=== PATIENT | female | born 1950 | race Caucasian/White ===

== ENCOUNTER → 2017-01-10 | Outpatient (CLI) | payer MEDICARE | END | disposition home or self-care (01) | LOC: PCVCCLINIC 15:30 | PROVIDERS: ATTEND Nuclear Medicine Nuclear Cardiology | DX: K55.1 Chronic vascular disorders of intestine (principal); I73.9 Peripheral vascular disease, unspecified; I10 Essential (primary) hypertension; E78.00 Pure hypercholesterolemia, unspecified; J44.9 Chronic obstructive pulmonary disease, unspecified | CPT/HCPCS: G0463 ==

== ENCOUNTER → 2017-02-11 | Outpatient (CLI) | payer MEDICARE | END | disposition home or self-care (01) | LOC: PCVCCLINIC 11:09 | PROVIDERS: ATTEND Nuclear Medicine Nuclear Cardiology | DX: Z01.812 Encounter for preprocedural laboratory examination (principal) | CPT/HCPCS: 36415 ==

== ENCOUNTER → 2017-02-15 | Outpatient (CLI) | payer MEDICARE, OTHER ==
[~2017-02-15] MED LIST: ASPIRIN 325 MG TABLET ONE; CLOPIDOGREL BISULFATE 75 MG TABLET ONE; DIAZEPAM 10 MG TABLET. ONE; FENTANYL PF 100 MCG/2 ML VIAL. ONE; HEPARIN SODIUM 5,000 UNIT/ML VIAL. ONE; IODIXANOL 270 MG/ML 100 ML VIAL. ONE; IOHEXOL 300 MG/ML 100ML VIAL. ONE; IV NORMAL SALINE 1000ML BAG 1,000 ML ONE; IV NORMAL SALINE 500ML BAG 0 ML ONE; MIDAZOLAM HCL/PF 2 MG/2 ML VIAL. ONE; VANCOMYCIN 1GM IVPB FOR OMNI 250 ML ONE; hydrALAZINE 20 MG/ML VIAL. ONE
== END | disposition home or self-care (01) ==
LOC: PCVCINTER 07:14
PROVIDERS: ATTEND Nuclear Medicine Nuclear Cardiology
DX: K55.1 Chronic vascular disorders of intestine (principal); I70.0 Atherosclerosis of aorta; I70.201 Unspecified atherosclerosis of native arteries of extremities, right leg; I70.1 Atherosclerosis of renal artery
CPT/HCPCS: 36245; 36246; 36252; 37236; 75716; 75726; 76937; C1725; C1751; C1760; C1769; C1876; C1887; C1894; J1644; J2250; J3010; J3370; J7030; Q9967; J0360; J7040

== ENCOUNTER → 2017-05-20 | Outpatient (CLI) | payer MEDICARE, OTHER ==
--- NOTE | 2017-05-21 18:35 | PCVCIMAG ---
APPROVED REPORT Exam: Nuclear Stress Test Indication: PVD, Multiple cardiac risks factors, SOB. Patient Location: Out-Patient Stress Nurse: Anel Levine RN, JESUS MANUEL Mccann Tech:Ugo SantosJAIR Ht: 5 ft 5 in Wt: 155 lbs BSA: 1.77 m2 HR: 75 bpm BP: 124/62 mmHg BMI: 25.7 Rhythm: SR Medical History Medical History: Hyperlipidemia, HTN, PVD, Former Smoker Medications: Diltiazem, ProAir, Simvastatin, Lisinopril, ASA, Allergies: [place] Pretest Chest Pain Characteristics: No chest pain Exercise History: Sedentary Physical Disabilities: Knees Meds Held (24 hrs): Butalbital NM EXAM: Myocardial Perfusion REST/STRESS Imaging Protocol: Rest Tc-99m/Stress Tc-99m 1 day Resting Data Rest SPECT myocardial perfusion imaging was performed in supine position 45 minutes following the intravenous injection of 11.4 mCi of Tc-99m Sestamibi. Time of rest injection: 09 Date: 05/20/2017 Pharmacologic Stress Pharmacologic stress test was performed by injecting Regadenoson 0.4 mg IV push followed by the intravenous injection of 33.8 mCi of Tc-99m Sestamibi. Time of stress injection: 1025 Date: 05/20/2017 The images were gated to evaluate regional wall motion and calculate left ventricular ejection fraction. Study Quality Study: Good Study Data Post stress, the left ventricular ejection was 72%.. SSS: 2 SRS: 3 SDS: 1 TID = 0.94. Perfusion No evidence of stress induced ischemia or prior myocardial infarction. Wall Motion Normal left ventricular size and function with no regional wall motion abnormalities. Nuclear Conclusion No evidence of stress induced ischemia or prior myocardial infarction. Normal left ventricular size and function with no regional wall motion abnormalities. Post stress, the left ventricular ejection was 72%.. No prior study available for comparison. Interpreted by: Bran Pena MD Electronically Approved: 05/20/2017 19:00:22 Stress Test Details Stress Test: Pharmacologic stress testing performed using 0.4 mg of regadenoson per 5 mL given IV over 10 seconds. HR Resting HR: 75 bpmMax Heart Rate (APMHR): 153 bpm Max HR Achieved: 96 bpmTarget HR (85% APMHR): 130 bpm % of APMHR: 62 Recovery HR: 87 bpm BP Resting BP: 124/62 mmHg Max BP: 104/51 mmHg Recovery BP: 114/53 mmHg ECG Resting ECG: Sinus Rhythm Stress ECG: Sinus Tachycardia Recovery ECG: Sinus Rhythm, NSSTT changes Clinical Reason for Termination: Completed protocol Stress Symptoms: None Symptoms resolved with caffeine. Stress ECG Conclusion ECG: Non-ischemic <Conclusion> ECG: Non-ischemic
== END | disposition home or self-care (01) ==
LOC: PCVCIMAG 08:45
PROVIDERS: ATTEND Nuclear Medicine Nuclear Cardiology
DX: I10 Essential (primary) hypertension (principal); I73.9 Peripheral vascular disease, unspecified; E78.5 Hyperlipidemia, unspecified; R00.0 Tachycardia, unspecified; E78.00 Pure hypercholesterolemia, unspecified; Z87.891 Personal history of nicotine dependence
CPT/HCPCS: 78452; 93017; A9500

== ENCOUNTER → 2017-05-23 | Outpatient (CLI) | payer MEDICARE, OTHER ==
[~2017-05-23] MED LIST changes: -ASPIRIN 325 MG TABLET ONE; -CLOPIDOGREL BISULFATE 75 MG TABLET ONE; -DIAZEPAM 10 MG TABLET. ONE; -FENTANYL PF 100 MCG/2 ML VIAL. ONE; -HEPARIN SODIUM 5,000 UNIT/ML VIAL. ONE; -IODIXANOL 270 MG/ML 100 ML VIAL. ONE; -IOHEXOL 300 MG/ML 100ML VIAL. ONE; -IV NORMAL SALINE 1000ML BAG 1,000 ML ONE; -IV NORMAL SALINE 500ML BAG 0 ML ONE; -MIDAZOLAM HCL/PF 2 MG/2 ML VIAL. ONE; +REGADENOSON 0.4 MG/5 ML DISP.SYRIN. IV ONE; -VANCOMYCIN 1GM IVPB FOR OMNI 250 ML ONE; -hydrALAZINE 20 MG/ML VIAL. ONE
--- NOTE | 2017-05-23 09:44 | PCVCIMAG ---
EXAM: BILATERAL CAROTID DUPLEX INDICATION: Carotid Occlusive Disease. FINDINGS: Doppler Measurements (centimeters per second): RIGHT: Peak CCA-69, Peak ECA-71, Diastolic ICA-28, Peak ICA-89, ICA/CCA Ratio-1.3. LEFT: Peak CCA-93, Peak ECA-123, Diastolic ICA-29, Peak ICA-112, ICA/CCA Ratio-1.2. RIGHT CAROTID: The carotid bulb has mild plaque. The proximal internal carotid artery shows <40% stenosis. The common carotid artery shows no significant stenosis. The external carotid artery shows no significant stenosis. LEFT CAROTID: The carotid bulb has moderate plaque. The proximal internal carotid artery shows <40% stenosis. The common carotid artery shows no significant stenosis. The external carotid artery shows no significant stenosis. Antegrade flow in both vertebral arteries. IMPRESSION: <40% stenosis of the right internal carotid artery with mild plaque. <40% stenosis of the left internal carotid artery with moderate plaque. LOC:[place] [id number]
--- NOTE | 2017-05-23 11:48 | PCVCIMAG ---
EXAM: MESENTERIC ARTERIAL DUPLEX INDICATION: Mesenteric Atherosclerosis. FINDINGS: Celiac [place]: Moderate systolic velocity elevation proximal segment compatible with a 50-60% stenosis as was seen on prior angiogram. Superior Mesenteric Artery: Moderate velocity elevation proximal/mid vessel consistent with 50-60% restenosis in the distal margin of prior stent. Inferior Mesenteric Artery: Moderate stenosis proximal vessel. No branch vessel stenosis. Mesenteric veins are patent where seen. IMPRESSION: Unchanged 50-60% stenosis proximal celiac axis not felt to be critically flow-limiting on recent angiogram. 50-60% restenosis proximal/mid superior mesenteric artery at the distal margin of a prior stent. Mild/moderate stenosis mid abdominal aorta as seen on prior angiogram. LOC:[id number]
== END | disposition home or self-care (01) ==
LOC: PCVCIMAG 08:19
PROVIDERS: ATTEND Nuclear Medicine Nuclear Cardiology
DX: I65.23 Occlusion and stenosis of bilateral carotid arteries (principal); K55.1 Chronic vascular disorders of intestine; I73.9 Peripheral vascular disease, unspecified; G12.9 Spinal muscular atrophy, unspecified; E78.00 Pure hypercholesterolemia, unspecified; I25.10 Atherosclerotic heart disease of native coronary artery without angina pectoris; J44.9 Chronic obstructive pulmonary disease, unspecified; Z79.82 Long term (current) use of aspirin
CPT/HCPCS: 93880; 93975; J2785

== ENCOUNTER → 2017-05-27 | Outpatient (CLI) | payer MEDICARE, OTHER | END | disposition home or self-care (01) | LOC: PCVCCLINIC 14:39 | PROVIDERS: ATTEND Nuclear Medicine Nuclear Cardiology | DX: I73.9 Peripheral vascular disease, unspecified (principal); K55.1 Chronic vascular disorders of intestine; I25.10 Atherosclerotic heart disease of native coronary artery without angina pectoris; I77.89 Other specified disorders of arteries and arterioles; M06.9 Rheumatoid arthritis, unspecified; I10 Essential (primary) hypertension; J44.9 Chronic obstructive pulmonary disease, unspecified; M19.90 Unspecified osteoarthritis, unspecified site; E78.00 Pure hypercholesterolemia, unspecified; Z86.718 Personal history of other venous thrombosis and embolism; Z90.710 Acquired absence of both cervix and uterus; Z87.891 Personal history of nicotine dependence; Z88.0 Allergy status to penicillin; Z79.82 Long term (current) use of aspirin | CPT/HCPCS: G0463 ==

== ENCOUNTER → 2017-12-03 | Outpatient (CLI) | payer MEDICARE, OTHER | END | disposition home or self-care (01) | LOC: PCVCIMAG 08:17 | DX: I77.4 Celiac artery compression syndrome (principal); I87.2 Venous insufficiency (chronic) (peripheral); I35.0 Nonrheumatic aortic (valve) stenosis; I10 Essential (primary) hypertension; E78.00 Pure hypercholesterolemia, unspecified; I82.4Y9 Acute embolism and thrombosis of unspecified deep veins of unspecified proximal lower extremity; I77.9 Disorder of arteries and arterioles, unspecified; I73.9 Peripheral vascular disease, unspecified; K55.1 Chronic vascular disorders of intestine; E78.1 Pure hyperglyceridemia; R07.89 Other chest pain; R60.9 Edema, unspecified; I25.10 Atherosclerotic heart disease of native coronary artery without angina pectoris; J44.9 Chronic obstructive pulmonary disease, unspecified; I70.8 Atherosclerosis of other arteries; M06.9 Rheumatoid arthritis, unspecified; Z87.891 Personal history of nicotine dependence; Z79.899 Other long term (current) drug therapy; Z79.82 Long term (current) use of aspirin | CPT/HCPCS: 80061; 93005; 93306; 93975; G0463 ==

== ENCOUNTER → 2017-12-12 | Outpatient (CLI) | payer MEDICARE, OTHER ==
[~2017-12-12] MED LIST changes: +DIAZEPAM 10 MG TABLET.; +EPINEPHrine 1 MG/ML VIAL; +EPTIFIBATIDE BOLUS 2,000 MCG/ML 10ML VIAL. IV; +HEPARIN SODIUM 5,000 UNIT/ML VIAL for PCVC.; +IOHEXOL 300 MG/ML 100ML VIAL.; +IOHEXOL 350 MG/ML 100 ML VIAL.; +IV NORMAL SALINE 1000ML BAG 1,000 ML; +LIDOCAINE 1% Multi-Dose 20 ML VIAL.; +METOPROLOL TARTRATE 5 MG/5 ML VIAL.; +MIDAZOLAM HCL/PF 2 MG/2 ML VIAL.; +NITROGLYCERIN SUBLINGUAL 0.4 MG BOTTLE OF 25. SL; -REGADENOSON 0.4 MG/5 ML DISP.SYRIN. IV ONE; +VANCOMYCIN 1GM IVPB FOR OMNI 0 ML; +fentaNYL PF VIAL 100 MCG/2 ML VIAL
== END | disposition home or self-care (01) ==
LOC: PCVCINTER 09:02
DX: I73.9 Peripheral vascular disease, unspecified (principal); K55.1 Chronic vascular disorders of intestine; I70.1 Atherosclerosis of renal artery; I10 Essential (primary) hypertension; Z79.899 Other long term (current) drug therapy; I25.10 Atherosclerotic heart disease of native coronary artery without angina pectoris; E78.00 Pure hypercholesterolemia, unspecified; E78.5 Hyperlipidemia, unspecified
CPT/HCPCS: 36245; 36252; 75630; 75726; 76937; 93458; 93880; 99152; 99153; C1751; C1760; C1769; C1894; J0171; J1327; J1644; J2250; J3010; J3370; J3490; J7030; Q9967

== ENCOUNTER → 2018-03-05 | Outpatient (CLI) | payer MEDICARE, OTHER | END | disposition home or self-care (01) | LOC: PCVCCLINIC 13:40 | DX: I25.10 Atherosclerotic heart disease of native coronary artery without angina pectoris (principal); E78.5 Hyperlipidemia, unspecified; I77.9 Disorder of arteries and arterioles, unspecified; I73.9 Peripheral vascular disease, unspecified; I10 Essential (primary) hypertension; I48.0 Paroxysmal atrial fibrillation; J44.9 Chronic obstructive pulmonary disease, unspecified; R94.31 Abnormal electrocardiogram [ECG] [EKG]; Z87.891 Personal history of nicotine dependence; Z79.82 Long term (current) use of aspirin; Z79.899 Other long term (current) drug therapy; Z88.0 Allergy status to penicillin | CPT/HCPCS: 80061; 93005; G0463 ==

== ENCOUNTER → 2018-03-19 | Outpatient (CLI) | payer MEDICARE, OTHER | END | disposition home or self-care (01) | LOC: PCVCCLINIC 13:28 | DX: I25.10 Atherosclerotic heart disease of native coronary artery without angina pectoris (principal); J44.9 Chronic obstructive pulmonary disease, unspecified; I73.9 Peripheral vascular disease, unspecified; I10 Essential (primary) hypertension; E78.00 Pure hypercholesterolemia, unspecified; Z88.0 Allergy status to penicillin | CPT/HCPCS: 36415 ==

== ENCOUNTER → 2018-04-29 | Outpatient (CLI) | payer MEDICARE, OTHER | END | disposition home or self-care (01) | LOC: PCVCIMAG 11:09 | DX: I08.2 Rheumatic disorders of both aortic and tricuspid valves (principal); I25.810 Atherosclerosis of coronary artery bypass graft(s) without angina pectoris; R06.02 Shortness of breath; J44.9 Chronic obstructive pulmonary disease, unspecified; I77.9 Disorder of arteries and arterioles, unspecified; I10 Essential (primary) hypertension; I73.9 Peripheral vascular disease, unspecified; E11.42 Type 2 diabetes mellitus with diabetic polyneuropathy; R53.83 Other fatigue; R94.39 Abnormal result of other cardiovascular function study; Z87.891 Personal history of nicotine dependence; Z79.82 Long term (current) use of aspirin; Z79.899 Other long term (current) drug therapy; Z88.0 Allergy status to penicillin | CPT/HCPCS: 93005; 93306; G0463 ==

== ENCOUNTER → 2018-05-05 | Outpatient (CLI) | payer MEDICARE, OTHER ==
[~2018-05-05] MED LIST changes: -EPINEPHrine 1 MG/ML VIAL; -EPTIFIBATIDE BOLUS 2,000 MCG/ML 10ML VIAL. IV; -HEPARIN SODIUM 5,000 UNIT/ML VIAL for PCVC.; -IOHEXOL 300 MG/ML 100ML VIAL.; +IOHEXOL 350 MG/ML 50 ML VIAL.; -LIDOCAINE 1% Multi-Dose 20 ML VIAL.; +LIDOCAINE 1% PF 30 ML VIAL.; +LIDOCAINE 1%/EPI 1:100,000 20 ML VIAL.; -METOPROLOL TARTRATE 5 MG/5 ML VIAL.; -NITROGLYCERIN SUBLINGUAL 0.4 MG BOTTLE OF 25. SL; -VANCOMYCIN 1GM IVPB FOR OMNI 0 ML
== END | disposition home or self-care (01) ==
LOC: PCVCINTER 11:21
DX: I70.1 Atherosclerosis of renal artery (principal); I25.10 Atherosclerotic heart disease of native coronary artery without angina pectoris; I70.293 Other atherosclerosis of native arteries of extremities, bilateral legs; K55.1 Chronic vascular disorders of intestine; I10 Essential (primary) hypertension; Z95.1 Presence of aortocoronary bypass graft; J44.9 Chronic obstructive pulmonary disease, unspecified
CPT/HCPCS: 36245; 36252; 75630; 75716; 75726; 76937; 93460; 93461; 99152; 99153; C1751; C1760; C1769; C1894; J1644; J2250; J3010; J3490; J7030; Q9967